=== PATIENT | female | born 1985 | race Caucasian/White ===

== ENCOUNTER 2021-06-11 08:00 | Inpatient (IN) ==
[2021-06-11] MEDS ORDERED: Naloxone 0.4 MG/ML INJ IVP PRN (08:45)
[2021-06-11] MEDS ORDERED: Metoclopramide 10 MG/2 ML VIAL IVP PRN (08:45)
[2021-06-11] MEDS ORDERED: Famotidine 20 MG/2 ML VIAL IVP PRN (08:45)
[2021-06-11] MEDS ORDERED: Ringers Solution, Lactated 1,000 ML IVC SCH (08:45)
[2021-06-11] MEDS ORDERED: miSOPROStoL 25 MCG TABLET PO PRN (08:51)
[2021-06-11] MEDS ORDERED: EPHEDrine 50 MG/ML VIAL IVP PRN (10:56)
[2021-06-11] MEDS ORDERED: *HR* FentaNYL (PF) 100 MCG/2 ML VIAL EP ONE (10:56)
[2021-06-11] MEDS ORDERED: Ropivacaine/PF 0.2% 20 ML VIAL EP ONE (10:56)
[2021-06-11] MEDS ORDERED: Epidural Premix (fent/bupiv) 110 ML EP SCH (11:00)
[2021-06-11 11:31] LABS: Basophils % 0.4 %; Eosinophils # 0.1 K/mcL (0.0-0.6); Eosinophils % 0.6 %; Hematocrit 36.3 % (35.3-44.9); Hemoglobin 11.6 g/dL (11.5-15.4); Immature Granulocytes % 0.2 % (0-4); Lymphocytes # 1.3 K/mcL (0.6-4.6); Lymphocytes % 15.7 %; Mean Corpuscular Hemoglobin 27.8 pg (28.0-33.3); Mean Corpuscular Volume 87.1 fL (83.0-100.0); Mean Platelet Volume 10.8 fL (9.4-12.4); Monocytes # 0.9 K/mcL (0.0-1.3); Monocytes % 10.4 %; Neutrophils # 6.2 K/mcL (1.6-8.9); Platelet Count 276 K/mcL (140-400); Red Blood Count 4.17 M/mcL (3.82-4.97); Red Cell Distribution Width 13.4 % (11.5-14.5); Segmented Neutrophils % 72.7 %; White Blood Count 8.6 K/mcL (4.3-11.1)
[2021-06-11 11:45] LABS: Amphetamine Screen,Urine Negative ng/mL (Cutoff=1000); Barbiturate Screen,Urine Negative ng/mL (Cutoff=200); Benzodiazepines Screen,Urine Negative ng/mL (Cutoff=200); Cannabinoid Screen,Urine Negative ng/mL (Cutoff = 50); Cocaine Screen,Urine Negative ng/mL (Cutoff= 300); Opiate Screen,Urine Negative ng/mL (Cutoff=300); Phencyclidine Screen,Urine Negative ng/mL (Cutoff=25)
[2021-06-11 12:12] LABS: Influenza A PCR Negative (Negative); Influenza B PCR Negative (Negative); Resp. Syncytial Virus PCR Negative (Negative)
[2021-06-11 12:48] LABS: SARS-CoV-2 by PCR (In House) Negative (Negative)
[2021-06-11] MEDS ORDERED: Acetaminophen 325 MG TABLET PO PRN (13:57)
[2021-06-11] MEDS ORDERED: Oxytocin 20 units/ LR 1000 mL 20 UNIT/1,000 ML BAG IVC SCH (15:00)
[2021-06-11] MEDS ORDERED: Lidocaine -MPF 2% 5 ML VIAL ONE (17:49)
[2021-06-11] MEDS: *HR* Nalbuphine 10 MG/ML AMPUL IV PRN (23:56)
[2021-06-12] MEDS: *HR* Nalbuphine 10 MG/ML AMPUL IV PRN (09:39)
[2021-06-12] MEDS ORDERED: Ropivacaine/PF 0.2% 20 ML VIAL ONE (10:11)
[2021-06-12] MEDS ORDERED: *HR* FentaNYL (PF) 100 MCG/2 ML VIAL ONE ×4 (10:58→14:43)
[2021-06-12] MEDS ORDERED: Oxytocin 20 units/ LR 1000 mL 20 UNIT/1,000 ML BAG IVC SCH (15:33)
[2021-06-12] MEDS ORDERED: Benzocaine/Menthol 56 GM AEROSOL SPRAY TP PRN (15:33)
[2021-06-12] MEDS ORDERED: Rho Immune Globulin 1,500 UNIT SYRINGE IM PRN (15:33)
[2021-06-12] MEDS ORDERED: Lanolin 7 G OINT...G. TP PRN (15:33)
[2021-06-12] MEDS ORDERED: Ondansetron ODT 4 MG TAB.RAPDIS SL PRN (15:33)
[2021-06-12] MEDS: Ibuprofen 600 MG TABLET PO SCH ×2 (17:48→23:27)
[2021-06-12] MEDS: Acetaminophen 325 MG TABLET PO SCH ×2 (17:48→23:27)
[2021-06-12] MEDS ORDERED: Ringers Solution, Lactated 1,000 ML ONE (21:45)
[2021-06-13] MEDS: Acetaminophen 325 MG TABLET PO SCH ×3 (05:28→17:37)
[2021-06-13] MEDS: Ibuprofen 600 MG TABLET PO SCH ×3 (05:29→17:37)
[2021-06-13 08:02] VITALS: BP 117/78; PULSE 76; TEMP 98; O2SAT 97
[2021-06-13] MEDS ORDERED: Prenatal Vit/FA 1 EACH TABLET PO SCH (09:00)
== END 2021-06-13 19:05 | disposition home or self-care (01) | DRG 807 ==
LOC: 1NENULAB 08:13 → 1NENUOBS 06-12 17:18
PROVIDERS: ADMIT Advanced Practice Midwife; ATTEND Advanced Practice Midwife